=== PATIENT | male | born 1965 | race Caucasian/White ===

== ENCOUNTER → 2016-06-24 | Day surgery (SDC) | payer MEDICARE, OTHER ==
[~2016-06-24] MED LIST: ACETAMINOPHEN325 MG PO; ASPIRIN 325MG325 MG PO; ASPIRIN CHEWABL81 MG PO; CLARITIN10 M2 PO; CLINDAMYCIN HC300 MG PO; CRESTOR20 MG PO; FISH OIL500 MG PO; FLUVOXAMINE PO; HYDROCHLOROTH12.5 M1 PO; KLONOPIN TAB 00.5 MG PO; MUCINEX600 MG PO; NAPROXEN500 MG PO; NEURONTIN 300300 MG PO; NEXIUM40 MG PO; NITROSTAT 0.40.4 MG SL; NORCO 7.5-3251 EACH PO; NORVASC5 MG PO; SUBOXONE 8 MG-1 EACH SL; TOPROL XL 50 MG50 MG PO; VOLTAREN100 GM TP
== END | disposition home or self-care (01) ==
LOC: OR 08:33
PROVIDERS: Internal Medicine Gastroenterology
PROC: 0DB68ZX Excision of Stomach, Via Natural or Artificial Opening Endoscopic, Diagnostic (ICD-10-PCS; principal; 2016-06-24 13:45)
DX: K29.50 Unspecified chronic gastritis without bleeding (principal); T18.2XXA Foreign body in stomach, initial encounter; K21.9 Gastro-esophageal reflux disease without esophagitis; I10 Essential (primary) hypertension; E11.9 Type 2 diabetes mellitus without complications; M19.90 Unspecified osteoarthritis, unspecified site; Z98.890 Other specified postprocedural states
CPT/HCPCS: J2250; J3010; J7030

== ENCOUNTER → 2021-10-27 | Outpatient (CLI) | payer MEDICARE, OTHER | LOC: RT 14:01 | DX: R07.9 Chest pain, unspecified (principal) | CPT/HCPCS: 93005 ==